=== PATIENT | female | born 1980 | race Caucasian/White ===

== ENCOUNTER 2023-09-26 12:23 | Day surgery (SDC) | payer OTHER ==
[2023-09-19 10:44] VITALS: BMI 23.1
[2023-09-26 14:20] VITALS: PULSE 70; RESP 16; TEMP 97.4
[2023-09-26 14:21] VITALS: BP 126/77
== END 2023-09-26 14:19 | disposition home or self-care (01) ==
LOC: FASU-ENDO 12:23
PROVIDERS: ATTEND Internal Medicine Gastroenterology
PROC: 0DJD8ZZ Inspection of Lower Intestinal Tract, Via Natural or Artificial Opening Endoscopic (ICD-10-PCS; principal; 2023-09-26 13:31)
DX: Z12.11 Encounter for screening for malignant neoplasm of colon (principal); K64.1 Second degree hemorrhoids; Z86.010 Personal history of colon polyps
CPT/HCPCS: 81025